=== PATIENT | female | born 1965 | race African-American/Black ===

== ENCOUNTER 2020-01-18 19:25 | Emergency (ER) | payer BC, OTHER ==
[~2020-01-18] VITALS: Ht 172.7 cm; Wt 90.0 kg
[2020-01-18 21:58] VITALS: BP 138/87
== END 2020-01-18 22:11 | disposition home or self-care (01) ==
LOC: ER 19:46
DX: M25.532 Pain in left wrist (principal); M25.522 Pain in left elbow; V49.49XA Driver injured in collision with other motor vehicles in traffic accident, initial encounter; Y93.89 Activity, other specified; Y92.488 Other paved roadways as the place of occurrence of the external cause; R03.0 Elevated blood-pressure reading, without diagnosis of hypertension
CPT/HCPCS: 29125; 73080; 73110; 99284

== ENCOUNTER 2022-01-31 22:02 | Emergency (ER) | payer BC, MEDICAID ==
[~2022-01-31] VITALS: Ht 180.3 cm; Wt 100.0 kg
[2022-01-31 22:17] VITALS: BP 130/82
[2022-02-01] MEDS: VISCOUS LIDOCAINE 2% 15 ML UDC MM PRN (03:07)
[2022-02-01] MEDS: FAMOTIDINE 20MG TABLET PO ONE (03:07)
[2022-02-01] MEDS: ASPIRIN 81MG TABLET PO ONE (03:07)
[2022-02-01 03:47] LABS: BASOPHILS % 0.2 % (0.0-2.0); EOSINOPHILS % 3.2 % (0.0-5.0); HEMATOCRIT. 40.8 % (36.0-48.0); HEMOGLOBIN. 13.8 g/dL (12.0-16.0); LYMPHOCYTES % 56.3 % (20.0-50.0); MEAN CORPUSCULAR HEMOGLOBIN 31.8 pg (28.0-32.0); MEAN CORPUSCULAR VOLUME 93.9 fL (81.0-99.0); MEAN PLATELET VOLUME 8.8 fl (7.4-10.4); MONOCYTES % 7.4 % (2.0-8.0); NEUTROPHILS % 32.9 % (40.0-76.0); PLATELET 227 x1000/uL (130-400); RED BLOOD CELL COUNT 4.34 mill/uL (4.2-5.4); RED CELL DISTRIBUTION WIDTH 15.1 % (11.6-14.6)
[2022-02-01 04:01] LABS: CHLORIDE 111 mEq/L (98-107)
[2022-02-01 04:21] LABS: CLARITY URINE CLOUDY (CLEAR); COLOR URINE DARK YELLOW (YELLOW); KETONES URINE TRACE (NEGATIVE); LEUKOCYTE ESTERASE URINE 1+ (NEGATIVE); NITRITE URINE POSITIVE (NEGATIVE); OCCULT BLOOD URINE TRACE (NEGATIVE); PH URINE 5.5 (4.5-8.0); PROTEIN URINE TRACE (NEGATIVE); SPECIFIC GRAVITY URINE 1.024 (1.005-1.030)
[2022-02-01] MEDS ORDERED: CEPH250C2 MT (05:20)
== END 2022-02-01 06:03 | disposition home or self-care (01) ==
LOC: ER 22:02
DX: R07.89 Other chest pain (principal)
CPT/HCPCS: 36415; 71045; 80053; 81003; 83690; 83880; 84484; 85025; 93005; 99285; Z7610